=== PATIENT | female | born 1970 | race Caucasian/White ===

== ENCOUNTER 2016-12-17 16:44 | Emergency (ER) | payer OTHER ==
--- NOTE | 2016-12-17 18:03 | ER Document Report ---
ED Medical Screen (RME) - General Chief Complaint: Chest Pain Stated Complaint: CHEST PAIN Notes: This 46-year-old female patient comes emergency room with a six-day history of exertional chest pain. She reports walking around his enough to provoke the pain. It usually comes on 3-5 minutes after exertion starts, it will go away in 3-5 minutes if she sits down and rests. When the chest pain does occur she gets mostly short of breath with some diaphoresis. Pain will be substernal going into the left chest and left arm and into the jaws. I have greeted and performed a rapid initial assessment of this patient. A comprehensive ED assessment and evaluation of the patient, analysis of test results and completion of the medical decision making process will be conducted by additional ED providers. TRAVEL OUTSIDE OF THE [place] IN LAST 30 DAYS: No - Related Data Allergies/Adverse Reactions: No Known Allergies Allergy (Verified 12/17/16 17:59) Past Medical History Renal/ Medical History: Denies: Hx Peritoneal Dialysis Past Surgical History: Reports: Hx Cholecystectomy, Hx Orthopedic Surgery - left knee, Hx Tubal Ligation - Immunizations Hx Diphtheria, Pertussis, Tetanus Vaccination: Yes Physical Exam - Vital signs Vitals: Temp Pulse Resp BP Pulse Ox 97.6 F 83 18 156/97 H 98 12/17/16 17:10 12/17/16 17:10 12/17/16 17:10 12/17/16 17:10 12/17/16 17:10 Course - Vital Signs Vital signs: Temp Pulse Resp BP Pulse Ox 97.6 F 83 18 156/97 H 98 12/17/16 17:10 12/17/16 17:10 12/17/16 17:10 12/17/16 17:10 12/17/16 17:10
[2016-12-17] MEDS ORDERED: ASPIRIN 81 MG TABLET, CHEWABLE PO ONE (18:09)
[2016-12-17 18:34] LABS: ABSOLUTE BASOPHILS # (AUTO) 0.1 10^3/uL (0.0-0.2); ABSOLUTE EOSINOPHILS # (AUTO) 0.3 10^3/uL (0.0-0.6); ABSOLUTE LYMPHOCYTES (AUTO) 3.2 10^3/uL (0.5-4.7); ABSOLUTE MONOCYTES (AUTO) 0.6 10^3/uL (0.1-1.4); ABSOLUTE NEUT (AUTO) 8.6 10^3/uL (1.7-8.2); BASOPHILS % (AUTO) 0.8 % (0-2); EOSINOPHILS % (AUTO) 2.2 % (0-6); HEMATOCRIT 38.5 % (36.0-47.0); HGB HCT DIFFERENCE 0.5; LYMPHOCYTES % (AUTO) 25.3 % (13-45); MEAN CORPUSCULAR HEMOGLOBIN 27.6 pg (27.0-33.4); MEAN CORPUSCULAR HGB CONC 33.7 g/dL (32.0-36.0); MEAN CORPUSCULAR VOLUME 82 fl (80-97); MONOCYTES % (AUTO) 4.9 % (3-13); RED BLOOD COUNT 4.69 10^6/uL (3.72-5.28); RED CELL DISTRIBUTION WIDTH 14.4 % (11.5-14.0); SEGMENTED NEUTROPHILS % (AUTO) 66.8 % (42-78); WHITE BLOOD COUNT 12.8 10^3/uL (4.0-10.5)
[2016-12-17 18:54] LABS: ALANINE AMINOTRANSFERASE 20 U/L (9-52); ALBUMIN 3.8 g/dL (3.5-5.0); ALKALINE PHOSPHATASE 79 U/L (38-126); ANION GAP 12 (5-19); ASPARTATE AMINO TRANSFERASE 16 U/L (14-36); BILIRUBIN,DIRECT 0.4 mg/dL (0.0-0.4); BILIRUBIN,TOTAL 0.6 mg/dL (0.2-1.3); BLOOD UREA NITROGEN 15 mg/dL (7-20); CALCIUM 9.2 mg/dL (8.4-10.2); CARBON DIOXIDE 26 mmol/L (22-30); CHLORIDE 100 mmol/L (98-107); CREATINE KINASE 52 U/L (30-135); CREATININE RESULT 0.57 mg/dL (0.52-1.25); GLUCOSE 162 mg/dL (75-110); POTASSIUM 4.3 mmol/L (3.6-5.0); SODIUM 137.8 mmol/L (137-145); TOTAL PROTEIN 7.1 g/dL (6.3-8.2)
[2016-12-17 19:04] LABS: CREATINE KINASE MB 0.49 ng/mL (<4.55)
[2016-12-17 19:05] LABS: TROPONIN I < 0.012 ng/mL
--- NOTE | 2016-12-17 20:05 | EKG REPORT ---
SEVERITY:- BORDERLINE ECG - SINUS RHYTHM BORDERLINE INFERIOR Q WAVES : Confirmed by: Sara Owens MD 17-Dec-2016 20:04:34
[2016-12-17] MEDS ORDERED: METOCLOPRAMIDE HCL ORAL SOLN 10 MG/10 ML UDCUP PO ONE (22:44)
[2016-12-17] MEDS ORDERED: FAMOTIDINE 20 MG TABLET PO ONE (22:44)
[2016-12-17] MEDS ORDERED: MAG HYDROX/AL HYDROX/SIMETH SUSP 30 ML UDCUP PO ONE (22:44)
[2016-12-17] MEDS ORDERED: LIDOCAINE 2% VISCOUS SOLN 20 ML UDCUP PO ONE (22:44)
--- NOTE | 2016-12-17 22:51 | ER Document Report ---
ED General - General Chief Complaint: Chest Pain Stated Complaint: CHEST PAIN Notes: Patient is a 46-year-old female with past medical history of obesity who presents with concerns of intermittent chest pain for the past 6 days. Does describe it as an intermittent burning, pressure-like sensation in the center of her chest. States it's worsened by exertion, movement, or lying flat. It does resolve spontaneously. She has not tried any medications beyond Tums to improve her symptoms. She has no history of similar symptoms. Admits that she' s recently been out of town and had a large amount of dietary indiscretions and feels that this may result in her symptoms. Notes frequently associated belching with seems to relieve her chest pain when is present. Contrary to the triage assessment at the time of my assessment the patient denies any associated hemoptysis, shortness of breath, vomiting, or diaphoresis. No radiation of the pain. She has not seen her primary care doctor regarding today 's concerns. TRAVEL OUTSIDE OF THE [place] IN LAST 30 DAYS: No - Related Data Allergies/Adverse Reactions: No Known Allergies Allergy (Verified 12/17/16 17:59) Past Medical History - General Information source: Patient - Social History Smoking Status: Never Smoker Frequency of alcohol use: None Drug Abuse: None Lives with: Spouse/Significant other Family History: Reviewed & Not Pertinent, Other Patient has suicidal ideation: No Patient has homicidal ideation: No Renal/ Medical History: Denies: Hx Peritoneal Dialysis Past Surgical History: Reports: Hx Cholecystectomy, Hx Orthopedic Surgery - left knee, Hx Tubal Ligation - Immunizations Hx Diphtheria, Pertussis, Tetanus Vaccination: Yes Review of Systems - Review of Systems Notes: Constitutional: Negative for fever. HENT: Negative for sore throat. Eyes: Negative for visual changes. Cardiovascular: Positive for chest pain. Respiratory: Negative for shortness of breath. Gastrointestinal: Negative for abdominal pain, vomiting or diarrhea. Genitourinary: Negative for dysuria. Musculoskeletal: Negative for back pain. Skin: Negative for rash. Neurological: Negative for headaches, weakness or numbness. 10 point ROS negative except as marked above and in HPI. Physical Exam - Vital signs Vitals: Temp Pulse Resp BP Pulse Ox 97.6 F 83 18 156/97 H 98 12/17/16 17:10 12/17/16 17:10 12/17/16 17:10 12/17/16 17:10 12/17/16 17:10 Interpretation: Hypertensive Notes: PHYSICAL EXAMINATION: GENERAL: Well-appearing, well-nourished and in no acute distress. Belching frequently HEAD: Atraumatic, normocephalic. EYES: Pupils equal round and reactive to light, extraocular movements intact, sclera anicteric, conjunctiva are normal. ENT: nares patent, oropharynx clear without exudates. Moist mucous membranes. NECK: Normal range of motion, supple without lymphadenopathy LUNGS: Breath sounds clear to auscultation bilaterally and equal. No wheezes rales or rhonchi. HEART: Regular rate and rhythm without murmurs ABDOMEN: Soft, nontender, normoactive bowel sounds. No guarding, no rebound. No masses appreciated. EXTREMITIES: Normal range of motion, no pitting or edema. No cyanosis. NEUROLOGICAL: No focal neurological deficits. Moves all extremities spontaneously and on command. PSYCH: Normal mood, normal affect. SKIN: Warm, Dry, normal turgor, no rashes or lesions noted. Course - Re-evaluation Re-evalutation: 12/17/16 22:50 Presentation of chest pain in an otherwise well appearing patient. Low clinical suspicion for ACS given clinical history, exam, EKG without ST elevations or depressions, and negative initial troponin. HEART score less than or equal to 3. PE also seems unlikely given clinical history, absence of tachycardia or dyspnea. Patient is PERC criteria negative. CXR without evidence of pneumothorax or pneumonia. No widened mediastinum. Aortic dissection also seems unlikely given history, symmetric pulses, CXR, and vitals. Presentation appears most consistent with gastroesophageal reflux as patient is burping frequently while I'm in the room and admits that she typically actually has worsened pain after she tries to eat. Although she does note that her pain is often exertional she also notes that she gets it whenever she moves or when she lies flat. Will proceed with a repeat troponin and symptomatic treatment and reassess. HEART Score: History:1 EC Age:1 Risk Factors:1 Troponin:0 Total: 3 12/17/16 23:36 Patient does not wish to remain for repeat troponin. She has verbalized understanding that this could result in a missed cardiac event and serious possible consequences including an MN or . She states she has a child at home that she needs to attend to. She has had complete resolution of her discomfort after receiving a GI cocktail and again my overall suspicion for acute coronary event based on her history, EKG and troponin at this time are low. I have expressed to her that I would like to obtain a second troponin to further exclude ACS but she has requested to go home. Patient has capacity.At this time will discharge with return precautions and follow-up recommendations. Verbal discharge instructions given a the bedside and opportunity for questions given. Medication warnings reviewed. Patient is in agreement with this plan and has verbalized understanding of return precautions and the need for primary care follow-up in the next 24-72 hours. - Vital Signs Vital signs: Temp Pulse Resp BP Pulse Ox 97.6 F 80 18 145/89 H 97 12/17/16 17:10 12/17/16 23:45 12/17/16 23:45 12/17/16 23:45 12/17/16 23:45 - Laboratory Result Diagrams: 12/17/16 18:20 12/17/16 18:20 Laboratory results interpreted by me: 12/17/16 12/17/16 18:20 18:20 WBC 12.8 H RDW 14.4 H Absolute Neutrophils 8.6 H Glucose 162 H - Diagnostic Test Radiology reviewed: Image reviewed, Reports reviewed Radiology results interpreted by me: 12/17/16 23:36 Chest x-ray: No acute infiltrate or pneumothorax - EKG Interpretation by Me Additional EKG results interpreted by me: 12/17/16 23:37 Normal sinus rhythm. Rate 85. No ST elevations or depressions QTC is 476. Discharge - Discharge Clinical Impression: Chest pain Qualifiers: Chest pain type: unspecified Qualified Code(s): R07.9 - Chest pain, unspecified Condition: Good Disposition: HOME, SELF-CARE Additional Instructions: You were seen today for chest pain. The exact cause of your pain is unclear. However, your symptoms appear to be most consistent with stomach or upper intestinal irritation. Your evaluation here today has not demonstrated an alternative cause for your symptoms. Please begin taking famotidine 40 mg in the morning and 40 mg at night. This medicine can be purchased directly over- the-counter. You may also take medicine such as Pepto-Bismol or Tums to assist with your pain. Although your testing here is normal is critical that you follow-up with your primary care physician for continued evaluation of this chest pain and possible stress testing. I recommended you see your physician within the next 24-48 hours to be evaluated for consideration of a stress test. Please return to emergency department immediately if you have worsening of your chest pain, shortness of breath, vomiting, become unable to exert yourself due to pain or difficulty breathing, you pass out, or have any pain that radiates into your arms, jaw, or back. Please also return if you have any additional symptoms that are concerning to you. Referrals: BEN MCKINNEY MD [Primary Care Provider] - Follow up as needed
[2016-12-17 23:45] VITALS: BP 145/89
== END 2016-12-17 23:52 | disposition home or self-care (01) ==
LOC: ER 16:44
DX: R07.89 Other chest pain (principal); R14.2 Eructation
CPT/HCPCS: 93005; 99285; 36415; 82553; 82550; 85025; 80053; 84484; 71010; 93010; J3490

== ENCOUNTER → 2016-12-31 | Outpatient (CLI) | payer OTHER | LOC: RAD 09:28 | PROVIDERS: ATTEND Family Medicine | DX: R07.9 Chest pain, unspecified (principal); K21.9 Gastro-esophageal reflux disease without esophagitis; K44.9 Diaphragmatic hernia without obstruction or gangrene | CPT/HCPCS: 74220 ==

== ENCOUNTER → 2018-01-14 | Outpatient (CLI) | payer OTHER ==
--- NOTE | 2018-01-14 09:20 | RADIOLOGY REPORT (SQ) ---
EXAM DESCRIPTION: BARIUM SWALLOW ESOPHAGUS COMPLETED DATE/TIME: 01/14/2018 9:01 am REASON FOR STUDY: GERD K21.9 GASTRO-ESOPHAGEAL REFLUX DISEASE WITHOUT ESOPHAGITIS COMPARISON: 12/31/2016 barium swallow TECHNIQUE: Under fluoroscopic guidance, patient ingested effervescent granules followed by thick and thin barium. Fluoroscopic spot images and routine radiographic images acquired and stored on PACS. 12 MM BARIUM TABLET GIVEN: Yes No significant delay in passage. LIMITATIONS: None. FLUOROSCOPY TIME: FLUORO TIME: 1 minutes 32 seconds 7 series of digital images saved to PACS. FINDINGS: NEUROMUSCULAR COORDINATION OF SWALLOW: Normal. No aspiration. ESOPHAGEAL MOTILITY: Normal peristalsis. No esophageal spasm. ESOPHAGEAL MUCOSA: Normal mucosa without masses or ulceration. GASTRO-ESOPHAGEAL JUNCTION: Small hiatal hernia. Gastroesophageal reflux to the mid 3rd of the esoph varun. NON-GI TRACT STRUCTURES: No significant finding. OTHER: No other significant finding. IMPRESSION: Small hiatal hernia. Gastroesophageal reflux to the mid 3rd of the esophagus COMMENT: Quality ID 145: Final reports for procedures using fluoroscopy that document radiation exp osure indices, or exposure time and number of fluorographic images (if radiation exposure indices are not available) TECHNICAL DOCUMENTATION: JOB ID: [id number] 1866 [employer]- All Rights Reserved Reading location - IP/workstation name: [email or web address]
== END ==
LOC: RAD 08:32
PROVIDERS: ATTEND Family Medicine
DX: K21.9 Gastro-esophageal reflux disease without esophagitis (principal); K44.9 Diaphragmatic hernia without obstruction or gangrene
CPT/HCPCS: 74220

== ENCOUNTER 2019-03-01 13:28 | Emergency (ER) | payer OTHER ==
[2019-03-01 13:46] VITALS: BP 131/68
--- NOTE | 2019-03-01 14:57 | ER Document Report ---
ED Medical Screen (RME) - General Chief Complaint: Abdominal Pain Stated Complaint: LEFT ABDOMINAL PAIN Time Seen by Provider: 03/01/19 14:46 Primary Care Provider: BEN MCKINNEY MD [Primary Care Provider] - Follow up as needed TRAVEL OUTSIDE OF THE [place] IN LAST 30 DAYS: No - HPI Notes: 03/01/19 14:56 Patient is a 48-year-old female with a history of tubal ligation, gastric sleeve, cholecystectomy, hernia repair who presents, new left lower quadrant abdominal pain for the past 5 days it is not been improving with conservative measures. Pain does not radiate. Patient states that she has had a couple episodes of diarrhea. She is otherwise able to eat and drink without difficulty. She is urinating normally. Denies SALAS, fever, neck pain, URI, CP, SOB, dysuria, back pain, or rash. I have treated and performed a rapid initial assessment of this patient. A comprehensive ED assessment and evaluation of the patient, analysis of test results and completion of medical decision making process will be conducted by additional ED providers. PHYSICAL EXAMINATION: GENERAL: Well-appearing, well-nourished and in no acute distress. A&Ox4. Answers questions appropriately. LUNGS: Breath sounds clear to auscultation bilaterally and equal. No wheezes rales or rhonchi. HEART: Regular rate and rhythm without murmurs, rubs, gallops. ABDOMEN: Soft, nondistended abdomen. No guarding, no rebound. Normal bowel sounds present. No CVA tenderness bilaterally. + LLQ tenderness (cannot elicit thorough abd exam w/o bed, however). - Related Data Allergies/Adverse Reactions: No Known Allergies Allergy (Verified 03/01/19 14:45) Past Medical History - Social History Chew tobacco use (# tins/day): No Frequency of alcohol use: None Drug Abuse: None Renal/ Medical History: Denies: Hx Peritoneal Dialysis Past Surgical History: Reports: Hx Cholecystectomy, Hx Orthopedic Surgery - left knee, Hx Tubal Ligation - Immunizations Hx Diphtheria, Pertussis, Tetanus Vaccination: Yes Physical Exam - Vital signs Vitals: Temp Pulse Resp BP Pulse Ox 97.4 F 61 18 131/68 H 96 03/01/19 13:43 03/01/19 13:43 03/01/19 13:43 03/01/19 13:43 03/01/19 13:43 Course - Vital Signs Vital signs: Temp Pulse Resp BP Pulse Ox 97.4 F 61 18 131/68 H 96 03/01/19 13:43 03/01/19 13:43 03/01/19 13:43 03/01/19 13:43 03/01/19 13:43 Doctor's Discharge - Discharge Referrals: BEN MCKINNEY MD [Primary Care Provider] - Follow up as needed
[2019-03-01 15:28] LABS: ABSOLUTE BASOPHILS # (AUTO) 0.1 10^3/uL (0.0-0.2); ABSOLUTE EOSINOPHILS # (AUTO) 0.4 10^3/uL (0.0-0.6); ABSOLUTE LYMPHOCYTES (AUTO) 2.7 10^3/uL (0.5-4.7); ABSOLUTE MONOCYTES (AUTO) 0.6 10^3/uL (0.1-1.4); ABSOLUTE NEUT (AUTO) 9.3 10^3/uL (1.7-8.2); BASOPHILS % (AUTO) 0.4 % (0-2); EOSINOPHILS % (AUTO) 2.9 % (0-6); HEMOGLOBIN 14.1 g/dL (12.0-15.5); LYMPHOCYTES % (AUTO) 20.5 % (13-45); MEAN CORPUSCULAR HEMOGLOBIN 29.2 pg (27.0-33.4); MEAN CORPUSCULAR HGB CONC 34.3 g/dL (32.0-36.0); MEAN CORPUSCULAR VOLUME 85 fl (80-97); MONOCYTES % (AUTO) 4.8 % (3-13); PLATELET COUNT 371 10^3/uL (150-450); RED BLOOD COUNT 4.82 10^6/uL (3.72-5.28); RED CELL DISTRIBUTION WIDTH 13.7 % (11.5-14.0); SEGMENTED NEUTROPHILS % (AUTO) 71.4 % (42-78); TOTAL CELLS COUNTED % (AUTO) 100 %
[2019-03-01 16:23] LABS: ALANINE AMINOTRANSFERASE 20 U/L (9-52); ALBUMIN 3.7 g/dL (3.5-5.0); ALKALINE PHOSPHATASE 67 U/L (38-126); ANION GAP 12 (5-19); ASPARTATE AMINO TRANSFERASE 20 U/L (14-36); BILIRUBIN,DIRECT 0.3 mg/dL (0.0-0.4); BILIRUBIN,TOTAL 0.4 mg/dL (0.2-1.3); BLOOD UREA NITROGEN 13 mg/dL (7-20); CALCIUM 9.3 mg/dL (8.4-10.2); CARBON DIOXIDE 25 mmol/L (22-30); CHLORIDE 100 mmol/L (98-107); GLUCOSE 109 mg/dL (75-110); LIPASE 177.6 U/L (23-300); POTASSIUM 4.2 mmol/L (3.6-5.0); SODIUM 136.9 mmol/L (137-145); TOTAL PROTEIN 6.6 g/dL (6.3-8.2)
[2019-03-01] MEDS ORDERED: NORMAL SALINE 1000 ML 1,000 ML IV ONE (17:36)
--- NOTE | 2019-03-01 17:36 | ER Document Report ---
ED GI/ - General Chief Complaint: Abdominal Pain Stated Complaint: LEFT ABDOMINAL PAIN Time Seen by Provider: 03/01/19 14:46 Primary Care Provider: BEN MCKINNEY MD [NO LOCAL MD] - Follow up as needed Information source: Patient TRAVEL OUTSIDE OF THE [place] IN LAST 30 DAYS: No - HPI Patient complains to provider of: Abdominal pain - Related Data Allergies/Adverse Reactions: No Known Allergies Allergy (Verified 03/01/19 14:45) Past Medical History - Social History Smoking Status: Never Smoker Chew tobacco use (# tins/day): No Frequency of alcohol use: None Drug Abuse: None Family History: Reviewed & Not Pertinent, Other Patient has suicidal ideation: No Patient has homicidal ideation: No Renal/ Medical History: Denies: Hx Peritoneal Dialysis Past Surgical History: Reports: Hx Cholecystectomy, Hx Orthopedic Surgery - left knee, Hx Tubal Ligation - Immunizations Hx Diphtheria, Pertussis, Tetanus Vaccination: Yes Physical Exam - Vital signs Vitals: Temp Pulse Resp BP Pulse Ox 97.4 F 61 18 131/68 H 96 03/01/19 13:43 03/01/19 13:43 03/01/19 13:43 03/01/19 13:43 03/01/19 13:43 Course - Vital Signs Vital signs: Temp Pulse Resp BP Pulse Ox 97.4 F 61 18 131/68 H 96 03/01/19 13:43 03/01/19 13:43 03/01/19 13:43 03/01/19 13:43 03/01/19 13:43 - Laboratory Result Diagrams: 03/01/19 15:03 03/01/19 15:40 Laboratory results interpreted by me: 03/01/19 03/01/19 15:03 15:40 WBC 13.0 H Absolute Neutrophils 9.3 H Sodium 136.9 L Discharge - Discharge Clinical Impression: Sigmoid diverticulitis Leukocytosis Qualifiers: Leukocytosis type: unspecified Qualified Code(s): D72.829 - Elevated white blood cell count, unspecified Condition: Good Disposition: HOME, SELF-CARE Instructions: Diverticulitis ([facility]), Abdominal Pain ([facility]) Additional Instructions: Follow-up with your PCP in 1 to 2 days for recheck. Return for any worsening symptoms. Take medication as prescribed. [place] diet. Drink plenty of fluids. No alcohol with the Flagyl. Prescriptions: Ciprofloxacin HCl [Cipro 500 mg Tablet] 500 mg PO BID 10 Days #20 tablet Metronidazole [Flagyl 500 mg Tablet] 500 mg PO TID 10 Days #30 tablet Ondansetron [Zofran Odt 4 mg Tablet] 1 - 2 tab PO Q4H PRN #15 tab.rapdis PRN Reason: For Nausea/Vomiting Referrals: BEN MCKINNEY MD [NO LOCAL MD] - Follow up as needed
--- NOTE | 2019-03-01 18:14 | RADIOLOGY REPORT (SQ) ---
EXAM DESCRIPTION: CT ABD/PELVIS WITH IV ORAL COMPLETED DATE/TIME: 03/01/2019 5:56 pm REASON FOR STUDY: LLQ pain, h/o gastric sleeve COMPARISON: None. TECHNIQUE: CT scan of the abdomen and pelvis performed using helical scanning technique with dynamic intravenous contrast injection. No oral contrast. Images reviewed with lung, soft tissue, and bone w indows. Reconstructed coronal and sagittal MPR images reviewed. Delayed images for evaluation of the urinary system also acquired. All images stored on PACS. All CT scanners at this facility use dose modulation, iterative reconstruction, and/or weight based d osing when appropriate to reduce radiation dose to as low as reasonably achievable (ALARA). [facility]: Dose Right [facility]: CareDose [facility]: Dose Right [facility]: Teradose 4D [facility]: iFLYER CONTRAST TYPE AND DOSE: contrast/concentration: Isovue 350.00 mg/ml; Total Contrast Delivered: 100.0 ml; Total Saline Delivered: 51.3 ml RENAL FUNCTION: None required. The patient is less than 50 years old. RADIATION DOSE: CT Rad equipment meets quality standard of care and radiation dose reduction techniq ues were employed. CTDIvol: 18.3 - 20.8 mGy. DLP: 2049 mGy-cm.. LIMITATIONS: None. FINDINGS: LOWER CHEST: No significant findings. LIVER: Normal size. No enhancing masses. No dilated ducts. SPLEEN: Normal size. No focal lesions. PANCREAS: No masses identified. No significant calcifications. No adjacent inflammation or peripancre atic fluid collections. Pancreatic duct not dilated. GALLBLADDER: Surgically absent. ADRENAL GLANDS: No significant masses. RIGHT KIDNEY AND URETER: No cysts identified. No solid masses identified. No calcified stones. No hyd ronephrosis or hydroureter. LEFT KIDNEY AND URETER: No cysts identified. No solid masses identified. No calcified stones. No hydr onephrosis or hydroureter. AORTA AND VESSELS: No aneurysm. No dissection. Renal arteries, SMA, celiac without significant stenos is. RETROPERITONEUM: No bulky retroperitoneal adenopathy. BOWEL AND PERITONEAL CAVITY: Moderate lower descending colon diverticulitis- inflammatory changes. No free air or fluid collection. APPENDIX: Normal. PELVIS: No mass. No free fluid. Unremarkable bladder. ABDOMINAL WALL: No masses. No hernias. BONES: No acute findings. Moderate degenerative disc disease at the L5-S1 level. OTHER: No other significant finding. IMPRESSION: Moderate lower descending colon diverticulitis- inflammatory changes. No free air or flu id collection. TECHNICAL DOCUMENTATION: JOB ID: [id number] Quality ID # [id number]: Final reports with documentation of one or more dose reduction techniques (e.g., Au tomated exposure control, adjustment of the mA and/or kV according to patient size, use of iterative reconstruction technique) 2010 [employer]- All Rights Reserved Reading location - IP/workstation name: [email or web address]
[2019-03-01 19:25] LABS: APPEARANCE,URINE CLEAR; BILIRUBIN,URINE NEGATIVE (NEGATIVE); COLOR,URINE STRAW; GLUCOSE, URINE NEGATIVE (NEGATIVE); KETONES,URINE TRACE mg/dL (NEGATIVE); LEUKOCYTE ESTERASE,URINE NEGATIVE (NEGATIVE); NITRITE,URINE NEGATIVE (NEGATIVE); PROTEIN,URINE NEGATIVE (NEGATIVE); URINE SPECIFIC GRAVITY 1.043; UROBILINOGEN,URINE NEGATIVE mg/dL (<2.0)
== END 2019-03-01 20:11 | disposition home or self-care (01) ==
LOC: ER 13:28
DX: K57.32 Diverticulitis of large intestine without perforation or abscess without bleeding (principal); D72.829 Elevated white blood cell count, unspecified; R10.32 Left lower quadrant pain; R19.7 Diarrhea, unspecified; Z98.84 Bariatric surgery status
CPT/HCPCS: 99283; 96360; 36415; 83690; 85025; 80053; 81001; 74177; J7030

== ENCOUNTER 2020-02-09 01:30 | Emergency (ER) | payer OTHER ==
[2020-02-09] MEDS ORDERED: ACETAMINOPHEN 325 MG TABLET PO ONE (01:46)
--- NOTE | 2020-02-09 02:38 | RADIOLOGY REPORT (SQ) ---
RIGHT SHOULDER RADIOGRAPHS: 02/09/2020 1:36 AM CDT TECHNIQUE: AP internal/external rotation, Y views of the right shoulder were obtained. COMPARISON: None available HISTORY: 49-year old patient with right shoulder pain . FINDINGS: The visualized portions of the right hemithorax appear unremarkable. There is mild degenerative spurring at the right acromioclavicular joint. There are no findings to suggest an acute fracture of the right shoulder. The visualized portions of the right clavicle demonstrate no evidence of an acute fracture. The visualized soft tissues appear unremarkable. IMPRESSION: There are no findings to suggest an acute fracture of the right shoulder.
[2020-02-09] MEDS ORDERED: DEXAMETHASONE SOD PHOS INJ 10 MG/1 ML VIAL IM ONE (03:25)
--- NOTE | 2020-02-09 03:29 | ER Document Report ---
ED General - General Chief Complaint: Shoulder Pain Stated Complaint: RIGHT SHOULDER PAIN Primary Care Provider: CJ GUADALUPE MD [Primary Care Provider] - Follow up as needed Notes: Patient is a 49-year-old white female with a history of osteoarthritis, bilateral total knee arthroplasties, peripheral neuropathy and "balance issues" who presents to the emergency department today with a chief complaint of right shoulder pain that began about 2 days ago. The patient states that she woke up and the shoulder was sore. She states certain range of motion such as elevation and lifting the arm over the head increases pain. She states the pain is primarily situated over the right AC joint and radiates into the right trapezius and right clavicle. Denies any chest pain or shortness of breath. Denies any blunt injury or trauma. Denies any radiation down the arm, numbness, tingling or weakness. No history of the same. States pain is also worse at night with rolling onto the affected arm. TRAVEL OUTSIDE OF THE [place] IN LAST 30 DAYS: No - Related Data Allergies/Adverse Reactions: No Known Allergies Allergy (Verified 02/09/20 01:40) Home Medications: HIGH LIPIDS Past Medical History - Social History Smoking Status: Never Smoker Frequency of alcohol use: None Drug Abuse: None Family History: Reviewed & Not Pertinent, Other Patient has homicidal ideation: No Renal/ Medical History: Denies: Hx Peritoneal Dialysis GI Medical History: Reports: Hx Gastroesophageal Reflux Disease Psychiatric Medical History: Reports: Hx Depression Past Surgical History: Reports: Hx Cholecystectomy, Hx Gastric Bypass Surgery - gastric sleeve remotely, Hx Herniorrhaphy, Hx Orthopedic Surgery - left knee, Hx Tubal Ligation - Immunizations Hx Diphtheria, Pertussis, Tetanus Vaccination: Yes Review of Systems - Review of Systems Musculoskeletal: Joint pain -: Yes All other systems reviewed and negative Physical Exam - Vital signs Vitals: Temp 97.7 F 02/09/20 01:40 - General General appearance: Appears well, Alert In distress: None - Respiratory Respiratory status: No respiratory distress Chest status: Nontender Breath sounds: Normal Chest palpation: Normal - Cardiovascular Rhythm: Regular Heart sounds: Normal auscultation - Extremities General upper extremity: Other - Full passive range of motion of the right upper extremity. There is palpable tenderness over the right AC joint. No deformities. Nontender right deltoid. There is some tenderness to the right trapezius with palpation. Patient has full range of motion of the C-spine without tenderness midline. No deformity step-off or crepitus. 2+ radial on the right. 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 - Neurological Neuro grossly intact: Yes Cognition: Normal Orientation: AAOx4 - Psychological Associated symptoms: Normal affect, Normal mood - Skin Skin Temperature: Warm Skin Moisture: Dry Skin Color: Normal Course - Re-evaluation Re-evalutation: 02/09/20 03:27 Suspect etiology likely arthritic from the acromioclavicular joint. Patient was given Tylenol for pain upon arrival. She be given a shot of Decadron here in the emergency department and given a sling to use intermittently for joint rest. She will mix this with gentle range of motion exercises to avoid frozen shoulder. She has a well-known orthopedist that she will call for reevaluation and potential cortisone injection. Counseled her at length regarding the importance of outpatient follow-up and advised that she return here or any ER immediately with any new, persistent or worsening symptoms. She verbalized understood and agreed. - Vital Signs Vital signs: Temp Pulse Resp BP Pulse Ox 97.7 F 80 16 133/98 H 98 02/09/20 01:46 02/09/20 01:46 02/09/20 01:46 02/09/20 01:46 02/09/20 01:46 Discharge - Discharge Clinical Impression: AC joint arthropathy Condition: Stable Disposition: HOME, SELF-CARE Instructions: Osteoarthritis ([facility]) Additional Instructions: Follow-up with your regular doctor or your orthopedist in 2 to 3 days for reevaluation. Return here or any ER immediately with any new, persistent or wor sening symptoms. Referrals: CJ GUADALUPE MD [Primary Care Provider] - Follow up as needed
[2020-02-09 03:54] VITALS: BP 130/78
== END 2020-02-09 03:54 | disposition home or self-care (01) ==
LOC: ER 01:30
DX: M19.019 Primary osteoarthritis, unspecified shoulder (principal); M25.511 Pain in right shoulder; Z79.899 Other long term (current) drug therapy
CPT/HCPCS: 99283; 96372; 73030; J1100